=== PATIENT | male | born 1985 | race Caucasian/White ===

== ENCOUNTER 2016-11-28 22:34 | Emergency (ER) | payer OTHER ==
[2016-11-28] MEDS ORDERED: KETOROLAC 60 MG/2 ML VIAL IVP STA (22:45)
[2016-11-28] MEDS ORDERED: KETOROLAC 30 MG/ML VIAL ONE (22:46)
== END 2016-11-29 00:59 | disposition home or self-care (01) ==
DX: K80.20 Calculus of gallbladder without cholecystitis without obstruction (principal); I10 Essential (primary) hypertension; Z98.84 Bariatric surgery status

== ENCOUNTER 2016-11-30 14:51 | Outpatient (CLI) | payer OTHER | END 2016-11-30 14:52 | disposition home or self-care (01) | DX: K80.50 Calculus of bile duct without cholangitis or cholecystitis without obstruction (principal) ==

== ENCOUNTER 2016-12-05 09:32 | Day surgery (SDC) | payer OTHER ==
[2016-12-05] MEDS ORDERED: ceFAZolin 2 GM/50 ML 50 ML IV ONE (09:34)
[2016-12-05] MEDS ORDERED: LACTATED RINGERS 1,000 ML IV ONE ×2 (09:49→12:30)
[2016-12-05] MEDS ORDERED: DEXAMETHASONE 4 MG/ML VIAL IVP ONE (11:00)
[2016-12-05] MEDS ORDERED: BUPIVACAINE 0.5%-EPI 1:200000 PF 30 ML VIAL SUBQ ONE (11:00)
[2016-12-05] MEDS ORDERED: KETOROLAC 30 MG/ML VIAL IVP ONE (11:00)
[2016-12-05] MEDS ORDERED: MIDAZOLAM 2 MG/2 ML VIAL IVP ONE (11:00)
[2016-12-05] MEDS ORDERED: fentaNYL 100 MCG/2 ML VIAL IVP ONE (11:00)
[2016-12-05] MEDS ORDERED: GLYCOPYRROLATE 1 MG/5 ML VIAL IVP ONE (11:00)
[2016-12-05] MEDS ORDERED: NEOSTIGMINE 1 MG/1 ML 10 ML MDV IVP ONE (11:00)
[2016-12-05] MEDS ORDERED: SUCCINYLCHOLINE 200 MG/10 ML VIAL IVP ONE (11:00)
[2016-12-05] MEDS ORDERED: PROPOFOL 200 MG/20 ML VIAL IVP ONE (11:00)
[2016-12-05] MEDS ORDERED: ONDANSETRON 4 MG/2 ML VIAL IVP ONE (11:00)
[2016-12-05] MEDS ORDERED: ROCURONIUM 50 MG/5 ML VIAL IVP ONE (11:00)
[2016-12-05] MEDS ORDERED: LIDOCAINE-MPF 2% 5 ML VIAL IM ONE (11:00)
[2016-12-05] MEDS: HYDROmorphone 1 MG/ML SYRINGE ONE ×6 (12:32→13:15)
[2016-12-05] MEDS ORDERED: ONDANSETRON 4 MG/2 ML VIAL ONE (12:37)
[2016-12-05] MEDS: fentaNYL 100 MCG/2 ML VIAL ONE ×3 (12:45→12:56)
[2016-12-05] MEDS ORDERED: oxyCOD/ACETAMIN 5 MG/325 MG TABLET PO ONE (13:30)
== END 2016-12-05 09:33 | disposition home or self-care (01) ==
PROC: 0FB04ZX Excision of Liver, Percutaneous Endoscopic Approach, Diagnostic (ICD-10-PCS; 2016-12-05)
PROC: 0FT44ZZ Resection of Gallbladder, Percutaneous Endoscopic Approach (ICD-10-PCS; principal; 2016-12-05 10:45)
DX: K80.10 Calculus of gallbladder with chronic cholecystitis without obstruction (principal); K75.89 Other specified inflammatory liver diseases; I10 Essential (primary) hypertension; Z98.84 Bariatric surgery status; Z87.891 Personal history of nicotine dependence; Z80.9 Family history of malignant neoplasm, unspecified; G47.33 Obstructive sleep apnea (adult) (pediatric)
CPT/HCPCS: 47379; 47562; A9270; J0690; J1170; J7120

== ENCOUNTER 2016-12-14 07:38 | Outpatient (CLI) | payer OTHER | END 2016-12-14 07:39 | disposition home or self-care (01) | DX: E44.0 Moderate protein-calorie malnutrition (principal); E44.1 Mild protein-calorie malnutrition; E63.9 Nutritional deficiency, unspecified ==